=== PATIENT | female | born 1965 | race Caucasian/White ===

== ENCOUNTER → 2018-11-17 07:35 | Outpatient (CLI) | payer BC, SELFPAY ==
--- NOTE | 2018-11-17 07:42 | XR_ITS ---
XR foot wt bearing LT 3V HISTORY: ITS.REASON: Pain ORDERING PHYSICIAN: Mimi Franklin DPM PATIENT AGE: 53 years COMPARISON: None FINDINGS: No fracture or dislocation. No lytic or blastic change. There is normal mineralization.. The joint spaces are well-preserved. No significant degenerative/arthritic changes. No erosive changes evident. Normal alignment IMPRESSION: Negative, no acute finding
--- NOTE | 2018-11-17 07:42 | XR_ITS ---
XR foot wt bearing RT 3V HISTORY: ITS.REASON: Pain ORDERING PHYSICIAN: Mimi Franklin DPM PATIENT AGE: 53 years COMPARISON: None FINDINGS: No fracture or dislocation. No lytic or blastic change. There is normal mineralization.. The joint spaces are well-preserved. No significant degenerative/arthritic changes. No erosive changes evident. Normal alignment IMPRESSION: Negative, no acute finding
== END ==
PROVIDERS: PCP Family Medicine; Visit Provider Podiatrist
DX: M79.672 Pain in left foot (principal); M79.671 Pain in right foot
CPT/HCPCS: 73630

== ENCOUNTER → 2018-12-29 09:39 | Outpatient (CLI) | payer BC, SELFPAY ==
--- NOTE | 2018-12-29 09:42 | XR_ITS ---
XR DEXA axial skeleton HISTORY: ITS.REASON: OSTEOPOROSIS ORDERING PHYSICIAN: Rob Art MD PATIENT AGE: 53 years COMPARISON: None FINDINGS: The BMD measured at the Right femoral neck is 0.822 g/cm squared with a T score of -1.6. This is considered Osteopenic according to the World Health Organization criteria. Fracture risk is Moderate. Treatment is advised. L1 L4 density has a T score of 0.7 within normal limits IMPRESSION: Osteopenia with moderate fracture risk. Treatment is advised. Suggest follow-up exam December 2020
== END ==
PROVIDERS: PCP Family Medicine; Visit Provider Family Medicine
DX: Z13.820 Encounter for screening for osteoporosis (principal)
CPT/HCPCS: 77080

== ENCOUNTER → 2022-08-13 07:27 | Outpatient (CLI) | payer BC, SELFPAY ==
--- NOTE | 2022-08-13 07:31 | XR_ITS ---
FINAL REPORT CLINICAL HISTORY: RT SHOULDER PAIN FINDINGS: RIGHT SHOULDER: 3 views of the right shoulder were obtained. There is no acute fracture or dislocation. There are mild degenerative changes of the acromioclavicular and the glenohumeral joints. There is no soft tissue abnormality. IMPRESSION: Mild degenerative change. Reviewed, Interpreted and Dictated by Benji Ely III, MD Transcribed by Mono Mack Authenticated and [facility]
== END ==
PROVIDERS: PCP Family Medicine; Visit Provider Family Medicine
DX: M25.511 Pain in right shoulder (principal)
CPT/HCPCS: 73030

== ENCOUNTER → 2022-08-15 08:42 | Outpatient (CLI) | payer BC, SELFPAY ==
--- NOTE | 2022-08-15 08:45 | XR_ITS ---
FINAL REPORT TECHNIQUE: Bone mineral density was calculated of the lumbar spine and hip. CLINICAL HISTORY: . osteopenia, prior 2019 COMPARISON: 12/29/2018 FINDINGS: Using L1-4, the bone mineral density of the spine is 1.036 g/cm2, was 1.26 corresponding to T-score of -0.1, was 0.7 Using the left hip, the bone mineral density of the femoral neck is 0.717 g/cm2, was 0.900 corresponding to a T-score of -1.2, was -1.0 Using the right hip, the bone mineral density of the femoral neck is 0.694 g/cm2, was 0.822 corresponding to a T-score of -1.4, was -1.6 NOTE: T-score: Standard deviation compared with peak bone mass of young adult mean. *Following the recommendations of the International Society of Bone densitometry, classification of hip BMD is based on the lower of two T-scores; total hip or femoral neck. IMPRESSION: Diminished bone mineral density of the lumbar spine and left hip consistent with osteopenia. FRAX data report 6.2% major osteoporotic fracture and 0.4% of hip fracture. Reviewed, Interpreted and Dictated by Benji Ely III, MD Transcribed by Shannon Leon Authenticated and . [facility]
== END ==
PROVIDERS: PCP Family Medicine; Visit Provider Family Medicine
DX: Z13.820 Encounter for screening for osteoporosis (principal); M85.89 Other specified disorders of bone density and structure, multiple sites
CPT/HCPCS: 77080

== ENCOUNTER 2025-05-18 06:01 | Day surgery (SDC) | payer BC, SELFPAY ==
[2025-05-09 10:44] VITALS: BMI 35.1
[2025-05-18 06:16] VITALS: BP 154/74; PULSE 76; RESP 18; TEMP 36.1; O2SAT 94; BMI 35.1
[2025-05-18] MEDS: LACTATED RINGERS 1000ML 1,000 ML 50 ML IV (06:29)
--- NOTE | 2025-05-18 06:54 | P.PNANES_ITS ---
[facility] Disclaimer: The information contained in this section may have been updated after the patient was seen, as this information can be updated by other users. Medical History GERD (gastroesophageal reflux disease) Hypertension Hyperlipidemia Hypothyroid Surgical History History of dental surgery H/O dilation and curettage Hysterectomy planned Family History Other No significant family history Social History (Updated 05/18/25 @ 06:27 by Chelsie Griggs RN) Smoking Status: Never smoker alcohol intake: never substance use type: denies use current occupational status: employed Travel in the last 8 weeks?: None [facility] Anesthesia Checklist Patient Identification Patient Identification: Arm Band and Family Structural Data Admitted From: Home Planned Operative Procedure/s: Colonoscopy Consent for Planned Operative Procedure(s) Verified: Yes Verified Documents: Surgical Consent and History and Physical NPO Status Verified Time NPO: 00:00 Additional verifications Patient : No Anesthesia Reactions: No Hx Blood Transfusions: No Blood Transfusion Reaction: No Cephalosporin Allergy: No Previous Colonoscopy: Yes Airway Assessment Mallampati Score:: Class III C-Spine Mobility Assessed: Yes TMJ Mobility Assessed: Yes Dentition: Good Dentition Neurological Assessment Level of Consciousness: Awake, Alert, Appropriate and Follows Commands Hx Seizures: No Numbness or tingling in extremities: No Anesthesia Plan Anesthesia Risk discussed: Yes ASA Class: II Anesthesia Type: MAC Preoperative Comments Pre-Operative Comments: Hypertension, (Losartin). Acid Reflux, (Prilosec), ?Not well controlled.
--- NOTE | 2025-05-18 07:05 | EXP.HP ---
History of Present Illness *Reason for visit:: Colon cancer screening *History of present illness: Mrs. Jeffery is a 60-year-old female who is here for screening colonoscopy. Last colonoscopy was April 2015. The examination is deemed medically necessary for screening colonoscopy. The patient has been seen, interviewed and examined prior to the procedure by both myself and the anesthesia provider. [facility] Disclaimer: The information contained in this section may have been updated after the patient was seen, as this information can be updated by other users. Medical History (Updated 05/18/25 @ 07:07 by Yusuf Renee II, MD) GERD (gastroesophageal reflux disease) Hypertension Hyperlipidemia Hypothyroid Surgical History History of dental surgery H/O dilation and curettage Hysterectomy planned Family History Other No significant family history Social History (Updated 05/18/25 @ 06:59 by Gerson Hernandez CRNA) Smoking Status: Never smoker alcohol intake: never substance use type: denies use current occupational status: employed Travel in the last 8 weeks?: None Have you lived/traveled outside [place] in past 30 days?: No Contact w/someone who lives/traveled outside US past 30 days?: No Exposure to someone with infectious disease in past 14 days?: No Do you have a fever (greater than 100.4 F or 38 C)?: No Have you tested positive for COVID-19?: No Exposed to someone with COVID-19 in past 14 days?: No Do you have a sore throat?: No Do you have a cough?: No Do you have any weakness?: No Are you experiencing any nausea/vomitting?: No Do you have any diarrhea?: No Are you experiencing any unusual bleeding?: No Do you have any muscle aches/pain?: No Do you have any abdominal pain?: No Are you experiencing loss of taste or smell?: No Other Medical History Have you received the Pneumonia Vaccine: No Review of Systems Review of Systems Review of systems (narrative): Negative *Cardiovascular Comments: Negative *Gastrointestinal Comments: Negative *Genitourinary Comments: Negative *Musculoskeletal Comments: Negative *Neurologic Comments: Negative Meds Home Medications and Allergies Home Medications ?Medication ?Instructions ?Recorded ?Confirmed ?Type acyclovir 200 mg capsule 200 mg PO Q4H PRN . 11/18/18 05/09/25 History estradiol 0.5 mg tablet 0.5 mg PO DAILY 30 days #30 tabs 11/18/18 05/09/25 History levothyroxine 100 mcg tablet 100 mcg PO DAILY 30 days #30 tabs 11/18/18 05/09/25 History losartan 50 mg tablet 50 mg PO DAILY 09/09/22 05/09/25 History meloxicam 7.5 mg tablet 7.5 mg PO DAILY 09/09/22 05/09/25 History omeprazole 40 mg capsule,delayed 40 mg PO DAILY 09/09/22 05/09/25 History release rosuvastatin 20 mg tablet 20 mg PO DAILY 09/09/22 05/09/25 History tizanidine 2 mg tablet 2 mg PO NEEDED PRN . 09/09/22 05/09/25 History diclofenac sodium 1 % topical gel 2 g topical TID BICEPS PAIN #100 09/23/22 05/09/25 Rx (Voltaren Arthritis Pain) grams sodium,potassium,mag sulfates 17.5 See Rx Instructions PO .COMPLEX 05/04/25 Rx gram-3.13 gram-1.6 gram oral soln #354 mL (Suprep Bowel Prep Kit) rosuvastatin 20 mg tablet 20 mg PO DAILY 05/09/25 05/09/25 History New Prescriptions to Start Prescriptions: Allergies Allergy/AdvReac Type Severity Reaction Status Date / Time Penicillins Allergy Unknown Hives Verified 05/18/25 06:31 From VICODIN Allergy Unknown I-HIVES Uncoded 10/09/22 13:59 Exam Data for Last 24 hours Vital signs and Labs for Last 24 Hours: Temp Pulse Resp BP Pulse Ox O2 Del Method 97.0 F L 76 18 154/74 H 94 L Room Air 05/18/25 06:16 05/18/25 06:16 05/18/25 06:16 05/18/25 06:16 05/18/25 06:16 05/18/25 06:16 I & O for Last 24 hours: Intake & Output 05/15/25 05/16/25 05/17/25 05/18/25 23:59 23:59 23:59 23:59 Weight 192 lb *Routine HEENT Exam Head: Present normocephalic Eye: Present EOMI and PERRL ENT: Present mucous membranes moist *Routine Neck Exam Neck: Present supple *Routine Respiratory Exam Respiratory: Present CTA bilaterally *Routine Cardiovascular Exam Cardiovascular: Present RRR *Routine Abdominal Exam Abdominal: Present soft and normoactive bowel sounds; Absent tenderness *Routine Rectal Exam Rectal:: deferred *Routine Genitalia Exam Genitalia:: deferred *Routine Extremities Exam Extremities: Absent cyanosis, clubbing or edema *Routine Skin Exam Skin: Present warm; Absent rash *Routine Neurological Exam Neurological: Present alert and oriented X3 Assessment and Plan *Assessment and plan (1) Screening for colon cancer: Status: Acute Category: Medical Code(s): Z12.11 - Encounter for screening for malignant neoplasm of colon Plan A/P: 1. Screening for colon cancer is the preprocedural diagnosis. The patient will be anesthetized/sedated using MAC sedation. The patient has been seen and examined. Cardiac and lung assessment prior to the examination is stable. Proceed with planned screening colonoscopy.
--- NOTE | 2025-05-18 07:32 | P.PCN_ITS ---
[facility] Procedure Note Date: 05/18/25 Time: 07:46 Procedure Note:: Colonoscopy Procedure Report: Colonoscopy Endoscopist: Yusuf Renee II, MD Referring physician: Rob Art MD Date of Procedure: May 18, 2025 Equipment: Olympus [id number] adult colonoscope Sedation: MAC sedation Indication: Mrs. Jeffery is a 60-year-old female who is here for follow-up screening/surveillance colonoscopy and her last colonoscopy was in April 2015 and was normal. She reports no abdominal pain, weight loss, change in her bowel habits or rectal bleeding. She reports no family history of colon cancer. Procedure: Prior to the procedure, a history and physical exam was performed, and patient's medications and allergies were reviewed. The risks, benefits and alternatives of the sedation and procedure were discussed with the patient. All questions were answered and informed consent was obtained. The patient was brought to the procedure room. Patient identification and proposed procedure were verified by the physician and the nurse. The patient was placed in a left lateral decubitus position and the scope was passed under direct vision. Throughout the procedure, the patient's blood pressure, pulse, and oxygen saturations were monitored continuously. The colonoscopy was accomplished without difficulty. The patient tolerated the procedure well. Findings: On digital rectal examination there was normal rectal tone. There were no external hemorrhoids. The colonoscope was introduced through the anal canal to the rectum and advanced to the cecum. The ileocecal valve and appendiceal orifice were identified. The scope was advanced a short distance into the ileum which appeared grossly normal. The scope was then withdrawn into the colon. The cecum, ascending, transverse and descending colon and mucosa were grossly normal. There were very mildly scattered diverticuli in the sigmoid colon (LEFT colon). The rectum itself was normal. Upon retroflexion within the rectum there were grade 1 internal hemorrhoids. The preparation was excellent throughout with [place] Preparation Score of 9. The cecal time was 10 minutes. Impression: 1. Mild sigmoid diverticulosis otherwise normal colonoscopy with intubation of the terminal ileum Plan: The patient will not require surveillance colonoscopy again for 10 years by ACS guidelines.
[2025-05-18 07:51] VITALS: BP 104/75; PULSE 64; RESP 16; TEMP 36.3; O2SAT 94
[2025-05-18 08:11] VITALS: BP 130/70; PULSE 64; RESP 16; O2SAT 95
[2025-05-18 08:21] VITALS: BP 147/75; PULSE 73; RESP 16; O2SAT 96
[2025-05-18 08:31] VITALS: BP 125/76; PULSE 71; RESP 16; O2SAT 97
== END 2025-05-18 08:31 | disposition home or self-care (01) ==
PROVIDERS: PCP Family Medicine; Visit Provider Internal Medicine Gastroenterology
PROC: 0DJD8ZZ Inspection of Lower Intestinal Tract, Via Natural or Artificial Opening Endoscopic (ICD-10-PCS; CPT 45378; principal; 2025-05-18 07:30)
DX: Z12.11 Encounter for screening for malignant neoplasm of colon (principal); K57.90 Diverticulosis of intestine, part unspecified, without perforation or abscess without bleeding; K21.9 Gastro-esophageal reflux disease without esophagitis; E78.5 Hyperlipidemia, unspecified; I10 Essential (primary) hypertension; E03.9 Hypothyroidism, unspecified; Z88.1 Allergy status to other antibiotic agents; Z88.5 Allergy status to narcotic agent; Z79.899 Other long term (current) drug therapy; Z79.890 Hormone replacement therapy
CPT/HCPCS: 45378; J2003; J2704; J7120

== ENCOUNTER 2025-09-25 13:39 | Outpatient (CLI) | payer BC, SELFPAY ==
--- NOTE | 2025-09-25 13:45 | XR_ITS ---
FINAL REPORT CLINICAL HISTORY: SCREENING COMPARISON: 08/15/2022 FINDINGS: Using L1-4, the bone mineral density of the spine is 1.050 g/cm2, corresponding to T-score of 0.0, within normal limits. Previously was 1.036 with a T-score of -0.1. Using the left hip, the bone mineral density of the femoral neck is 0.729 g/cm2, corresponding to a T-score of -1.1, consistent with osteopenia. Previously was 0.717 with a T-score of -1.2. Using the right hip, the bone mineral density of the femoral neck is 0.681 g/cm2, corresponding to a T-score of -1.5, consistent with osteopenia. Previously was 0 point 694 with a T-score of -1.4. FRAX 10 year fracture risk is 0.6% for a hip fracture and 7.0% for a major osteoporotic fracture. NOTE: T-score: Standard deviation compared with peak bone mass of young adult mean. *Following the recommendations of the International Society of Bone densitometry, classification of hip BMD is based on the lower of two T-scores; total hip or femoral neck. IMPRESSION: Normal bone mineral density of the lumbar spine, with diminished bone mineral density in the bilateral hips consistent with osteopenia. Reviewed, Interpreted and Dictated by El Melendez MD Transcribed by Isabel Lam Authenticated and [facility]
== END 2025-09-25 23:59 | disposition home or self-care (01) ==
LOC: RAD 13:40
PROVIDERS: PCP Family Medicine; Visit Provider Family Medicine
DX: Z13.820 Encounter for screening for osteoporosis (principal); R93.6 Abnormal findings on diagnostic imaging of limbs; Z78.0 Asymptomatic menopausal state
CPT/HCPCS: 77080